=== PATIENT | female | born 1960 | race Caucasian/White ===

== ENCOUNTER 2016-08-23 11:20 | Emergency (ER) | payer OTHER ==
[~2016-08-23] VITALS: Ht 165.1 cm; Wt 42.8 kg
[~2016-08-23 11:20] MED LIST: ESTR1TAB PO; LORTA5 PO; METH2.5 PO; PRED20 PO; SUBO8MIS SL
[2016-08-23 11:30] VITALS: BP 125/74; PULSE 101; RESP 16; TEMP 98.6; O2SAT 99
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
[2016-08-23] MEDS ORDERED: KETOROLAC TROMETHAMINE 60 MG/2 ML (IM) VIAL IM ONE (12:00)
[2016-08-23] MEDS ORDERED: PRED20 PO (12:01)
[2016-08-23] MEDS ORDERED: LISI10TA3 PO (12:02)
[2016-08-23] MEDS ORDERED: CYCL5TAB PO (14:06)
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
== END 2016-08-23 15:29 | disposition home or self-care (01) ==
LOC: PHEFT 11:20
DX: S16.1XXA Strain of muscle, fascia and tendon at neck level, initial encounter (principal); M54.2 Cervicalgia; M54.9 Dorsalgia, unspecified; I10 Essential (primary) hypertension; F17.200 Nicotine dependence, unspecified, uncomplicated; Z86.2 Personal history of diseases of the blood and blood-forming organs and certain disorders involving the immune mechanism; Z86.59 Personal history of other mental and behavioral disorders; V89.2XXA Person injured in unspecified motor-vehicle accident, traffic, initial encounter; Y92.410 Unspecified street and highway as the place of occurrence of the external cause
CPT/HCPCS: 72050; 96372; 99284; J1885